=== PATIENT | female | born 1985 | race Caucasian/White ===

== ENCOUNTER 2021-02-01 01:13 | Inpatient (IN) | payer BC ==
[2021-02-01] MEDS ORDERED: HYDROcodone/Acetaminophen 5/325 mg Tablet PO PRN ×3 (02:07→09:14)
[2021-02-01] MEDS ORDERED: Acetaminophen 500 MG TAB PO PRN (02:07)
[2021-02-01] MEDS ORDERED: Ibuprofen 800 MG TAB PO PRN (02:07)
[2021-02-01] MEDS ORDERED: Lidocaine 1% (PF) 30 ML VIAL SC PRN (02:07)
[2021-02-01] MEDS ORDERED: Butorphanol Tartrate 1 MG/ML VIAL SLOW IVP PRN (02:07)
[2021-02-01] MEDS ORDERED: hydrALAZINE 20 MG/ML VIAL SLOW IVP PRN ×2 (02:07→09:14)
[2021-02-01] MEDS ORDERED: Ondansetron PF 4 MG/2 ML Vial IVP PRN ×2 (02:07→09:14)
[2021-02-01] MEDS ORDERED: Lactated Ringer's 1,000 ML IV SCH ×2 (02:15)
[2021-02-01] MEDS ORDERED: NS w/ Oxytocin 30 units 500 ML IV SCH (02:15)
[2021-02-01 03:11] LABS: Mean Corpuscular HGB CONC 33.8 g/dL (32.0-36.0); Mean Corpuscular Hemoglobin 29.3 pg (27.0-33.0); Mean Corpuscular Volume 86.9 fl (81.6-98.3); Mean Platelet Volume 10.9 fl (7.4-10.4); Platelet Count 210 10x3/uL (150-450); RBC Distribution Width 14.1 % (11.5-14.5); Red Blood Cell (RBC) Count 4.43 10x6/uL (3.90-5.03); White Blood Cell (WBC) Count 12.4 10x3/uL (3.5-10.5)
[2021-02-01 03:36] LABS: Hep B Surf Ag Non-Reactive S/CO (NonReactive)
[2021-02-01 03:37] LABS: Syphilis Antibody Nonreactive (Nonreactive); Syphilis Antibody Index 0.07 S/CO (<1.00 Non-Reactive)
[2021-02-01 03:40] LABS: SARS-CoV-2 NAA Rapid Test Not Detected (NotDetected)
[2021-02-01 04:12] LABS: HBSAg Index 0.15 S/CO (0-0.99)
[2021-02-01] MEDS ORDERED: Milk Of Magnesia 30 ML UDCUP PO PRN (09:14)
[2021-02-01] MEDS ORDERED: Preparation H Ointment 28 GM TUBE PR PRN (09:14)
[2021-02-01] MEDS ORDERED: Bisacodyl 10 MG SUPP PR PRN (09:14)
[2021-02-01] MEDS ORDERED: Boostrix 0.5 ML (Tdap) VIAL IM ONE (09:14)
[2021-02-01] MEDS ORDERED: diphenhydrAMINE 25 MG CAP PO PRN (09:14)
[2021-02-01] MEDS ORDERED: Promethazine HCl 25 MG/ML VIAL IM PRN (09:14)
[2021-02-01] MEDS ORDERED: Benzocaine-Menthol 82.5 ML CAN TOP PRN (09:14)
[2021-02-01] MEDS ORDERED: Zolpidem Tartrate 5 MG TAB PO PRN (09:14)
[2021-02-01] MEDS ORDERED: Lanolin Ointment 7 GM TUBE TOP PRN (09:14)
[2021-02-01] MEDS ORDERED: Docusate Calcium (SURFAK) 240 MG CAP PO SCH (10:00)
[2021-02-01] MEDS ORDERED: Prenatal Vitamin 1 TAB PO SCH (10:00)
[2021-02-01] MEDS: Ferrous Sulfate 325 MG TAB PO SCH (10:55)
[2021-02-01] MEDS: Ibuprofen 800 MG TAB PO SCH ×2 (14:08→21:35)
[2021-02-01] MEDS: Docusate Calcium (SURFAK) 240 MG CAP PO SCH (21:35)
[2021-02-02] MEDS: Ibuprofen 800 MG TAB PO SCH ×2 (05:08→13:48)
[2021-02-02] MEDS: Docusate Calcium (SURFAK) 240 MG CAP PO SCH (08:41)
[2021-02-02] MEDS: Ferrous Sulfate 325 MG TAB PO SCH (08:42)
[2021-02-02] MEDS ORDERED: Prenatal Vitamin 1 TAB PO SCH (09:00)
[2021-02-02 11:17] VITALS: BP 114/65; TEMP 97.6
== END 2021-02-02 14:20 | disposition home or self-care (01) | DRG 807 ==
LOC: CSHLD/OP 01:13 → CSHLD 01:14 → CSHPP 09:12
PROVIDERS: ADMIT Student in an Organized Health Care Education/Training Program; ATTEND Student in an Organized Health Care Education/Training Program
PROC: 10E0XZZ Delivery of Products of Conception, External Approach (ICD-10-PCS; principal; 2021-02-01)
DX: O80 Encounter for full-term uncomplicated delivery (principal); Z37.0 Single live birth; Z3A.39 39 weeks gestation of pregnancy; Z20.822 Contact with and (suspected) exposure to COVID-19
CPT/HCPCS: 36415; 85027; 86780; 86850; 86900; 86901; 87340; 99285; U0002

== ENCOUNTER 2024-01-24 10:00 | Outpatient (CLI) | payer BC | END 2024-01-24 10:01 | disposition home or self-care (01) | LOC: CSHULT 10:00 | PROVIDERS: ATTEND Internal Medicine Gastroenterology | DX: R10.9 Unspecified abdominal pain (principal); R19.7 Diarrhea, unspecified; N20.0 Calculus of kidney | CPT/HCPCS: 76700 ==